=== PATIENT | male | born 1970 | race Caucasian/White ===

== ENCOUNTER 2017-03-04 14:00 | Inpatient (IN) | payer OTHER ==
[~2017-03-04] VITALS: Ht 177.8 cm; Wt 101.0 kg
--- NOTE | ~2017-03-04 | OR ---
PATIENT'S NAME: MEEK ALLEN [facility] AGE: 46 Y [address] ROOM: [place] [address] LOCATION: [facility] ADMIT DATE: 04/15/2017 OR/Procedure Report DISCHARGE DATE: FAMILY PHYSICIAN: Lucia Stephens MD ATTENDING PHYSICIAN: IMELDA MCDONALD SURGEON: Imelda Mcdonald MD CONDITIONING MACHINE OPERATOR: 1. ALFREDO Kat. 2. Ezequiel Hawkins CST/SUPERVISOR. 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 OPERATION: Right total knee arthroplasty with computer navigation. ANESTHESIA: Spinal anesthesia plus adductor canal block plus subcutaneous and periarticular local anesthesia (ropivacaine with epinephrine and Toradol). ESTIMATED BLOOD LOSS: DRAIN: None. SPECIMEN: None. COMPLICATIONS: None. IMPLANT SYSTEM: Chandu Triathlon Size 5 right posterior stabilized femoral component Size 4 universal modular tibial baseplate 11 mm posterior stabilized size 4 X3 tibial polyethylene insert. 32 mm Oval X3 patella component (triple pegged). INDICATIONS FOR SURGERY: Meek Allen is a 46-year-old male who presents with advanced right knee degenerative joint disease and associated severely compromised activities of daily living. The patient has decided to proceed with knee replacement after having been thoroughly counseled regarding the associated risks, benefits, and limitations. We have specifically reviewed the risks and implications of infection, deep venous thrombosis, pulmonary embolism, mortality, neurovascular complications, blood transfusion (and associated potential for disease transmission or transfusion reaction), stiffness, instability, mechanical deterioration of the components (due to wear and or loosening), and the potential need for revision. We have also PATIENT'S NAME: ELEANOR ALLENH Robert [facility] AGE: 46 Y [address] ROOM: [place] [address] LOCATION: [facility] ADMIT DATE: 04/15/2017 OR/Procedure Report DISCHARGE DATE: FAMILY PHYSICIAN: Lucia Stephens MD ATTENDING PHYSICIAN: IMELDA MCDONALD emphasized the importance of active involvement and compliance with post- operative physical therapy as a means of optimizing range of motion and functional recovery. Informed consent has been granted. DESCRIPTION OF PROCEDURE: The patient was positioned supine after administration of anesthesia and prophylactic antibiotics. A well-padded pneumatic tourniquet was placed around the right proximal thigh, and the right lower extremity was prepped and draped with vigilant sterile technique. The patient's name as well as the intended operative side and procedure were confirmed with a verbal time-out involving myself, the circulating nurse, the scrub nurse, and the anesthesiologist. Examination under anesthesia demonstrated a mild effusion. There were no active skin lesions or masses. There was a well-healed longitudinal midline scar over the patellar tendon. There was a moderate varus deformity (approximately 10 degrees). Range of motion was under anesthesia was from 2 degrees of hyperextension to 130 degrees of flexion. There was a 2+ pivot shift. There was a 2B Richie. There was no varus or valgus laxity. Negative posterior drawer. The right lower extremity was elevated and exsanguinated with an Esmarch wrap, and the pneumatic tourniquet was inflated to 300mmHg. The knee was approached through a longitudinal midline incision. A medial parapatellar arthrotomy was performed and the patella was everted. Examination of the joint space demonstrated a large osteophytes at the intercondylar notch. The anterior cruciate ligament was absent. The posterior cruciate ligament was intact. There was no synovitis. There were no loose bodies. There was a large popliteal cyst, which I decompressed into the posterior aspect of the joint space by dilating its point of communication. There was full-thickness loss of articular cartilage throughout the medial femoral condyle and throughout the posterior 2/3rd of the medial tibial plateau. There had been erosion of approximately 8 mm of subchondral bone from the posterior medial aspect of the medial tibial plateau. There was a 2 x 1 cm region of grade 4 chondromalacia at the lateral margin of the femoral trochlea. There was a 2 x 3 cm region of grade 4 chondromalacia at the medial half of the femoral trochlea. There were mild grade 3 degenerative changes at the patella. There were small osteophytes at the medial and lateral margins of the patella. There were large osteophytes at the medial and lateral femoral condyle. There was 1 x 2 cm diameter region of full-thickness articular cartilage loss at the medial aspect of the lateral femoral condyle. There were mild generalized grade 3 degenerative changes at the lateral tibial plateau. There was degenerative tearing of the inner perimeter of the small peripheral remnant of the medial meniscus. There the lateral meniscus. It should be noted that neither the interference screw at the distal femur nor the two ligament nicolle at the PATIENT'S NAME: MEEK ALLEN [facility] AGE: 46 Y [address] ROOM: [place] [address] LOCATION: [facility] ADMIT DATE: 04/15/2017 OR/Procedure Report DISCHARGE DATE: FAMILY PHYSICIAN: Lucia Stephens MD ATTENDING PHYSICIAN: IMELDA MCDONALD proximal tibia were encountered during the case. Remnants of the menisci and cruciate ligaments were excised. The Moneero computer navigation femoral tracker was pinned in place at the distal aspect of the femoral trochlea. Absence of motion between the femur and the tracking device was confirmed manually and visually. Femoral osseous landmarks were obtained in order to calibrate the computer navigation system. Landmarks included the center of rotation of the ipsilateral hip, the center-point of the distal femur, the femoral AP axis, 57 points on the medial femoral condyle articular surface, and 57 points on the lateral femoral condyle articular surface. The Moneero computer navigation system was subsequently utilized to position the distal femoral resection block such that the distal femoral resection was performed perfectly perpendicular to the femoral mechanical axis. The distal femoral resection was performed with a Apica Precision oscillating saw. The Moneero computer navigation tibial tracker was pinned in place at the anterior aspect of the tibial plateau. Absence of motion between the tibia and the tracking device was confirmed manually and visually. Tibial osseous landmarks were obtained in order to calibrate the computer navigation system. Landmarks included the center-point of the tibial plateau, the AP tibial axis, 57 points on the medial tibial plateau articular surface, 57 points on the lateral tibial plateau articular surface, the medial malleolus, and the lateral malleolus. The Moneero computer navigation system was subsequently utilized to position the proximal tibial resection block such that the proximal tibial resection was performed perfectly perpendicular to the tibial mechanical axis. The proximal tibial resection was performed with a Apica Precision oscillating saw. Perpendicularity of the tibial resection with respect to the tibial shaft axis was reconfirmed by inserting a spacer- block attached to an extramedullary guide phillip. External rotation of the anterior and posterior femoral resections was set parallel to the epicondylar axis and carefully adjusted in order to create a rectangular flexion gap. The box resection was performed with a reciprocating saw. Anterior and posterior chamfer resections were performed with the oscillating saw. Posterior condyle osteophytes were excised with an osteotome. All other osteophytes were excised with a rongeur. Resection of all remnants of the menisci was reconfirmed. Flexion and extension gaps were confirmed to be symmetric and well balanced with a spacer-block technique. The patella resection was performed with an oscillating saw such that the composite thickness of the reconstructed patella was equivalent to the thickness of the pitka's point patella. Patella tracking was optimal and there was no need for any lateral retinacular release. PATIENT'S NAME: MEEK ALLEN [facility] AGE: 46 Y [address] ROOM: [address] [address] LOCATION: [facility] ADMIT DATE: 04/15/2017 OR/Procedure Report DISCHARGE DATE: FAMILY PHYSICIAN: Lucia Stephens MD ATTENDING PHYSICIAN: IMELDA MCDONALD All trial components were removed and all prepared osseous surfaces were thoroughly irrigated with pulsatile saline lavage and dried prior to cementing all three components in a single stage using Apica Simplex cement containing pre-mixed tobramycin. All extruded excess cement was removed. The entire joint space was thoroughly inspected and thoroughly irrigated with bacteriostatic pulsatile saline lavage to assure that there was no residual debris of any sort. Final range of motion was from a full extension (with approximately 1 degree of residual passive hyperextension) to 130 degrees of flexion. Patella tracking was reconfirmed to be optimal. There was excellent anteroposterior stability at 90 degrees of flexion. There was less than 1 mm of medial lift- off to valgus stress in full extension. There was less than 1 mm of lateral lift-off to varus stress in full extension. The arthrotomy was closed with multiple simple and pnczge-vw-adccr interrupted #1 Vicryl. Subcutaneous tissues were thoroughly re-irrigated with bacteriostatic pulsatile saline lavage. Subcutaneous tissues were re- approximated with simple buried interrupted #0 Vicryl sutures. The skin was closed with simple buried interrupted 2-0 Vicryl sutures followed by surgical nicolle. The dressing consisted of Xeroform gauze, 4x4 gauze, ABD pads and two 6-inch Usama Wraps. There were no intra-operative complications. It should be noted that the physician's physiotherapy assistant played an active, integral role throughout this entire operation. By providing expert retraction, they greatly facilitated and expedited safe and effective exposure of the distal femur, proximal tibia and patella for preparation and implantation of the components. They were also actively involved in the patient's positioning, prepping and draping, as well as wound closure. MD RIP RODRIGUEZ/jayesh /[id number] d: 04/15/17 1545 t: 04/16/17 1209, OPERATIVE SUMMARY
--- NOTE | ~2017-03-04 | DS ---
PATIENT'S NAME: JOSE CRUZ [facility] AGE: 46 Y [address] ROOM: [place] [address] LOCATION: [facility] ADMIT DATE: 04/15/2017 Discharge Summary DISCHARGE DATE: 04/17/2017 FAMILY PHYSICIAN: Lucia Stephens MD ATTENDING PHYSICIAN: Imelda Mcdonald PRIMARY DIAGNOSIS: Degenerative joint disease of the right knee. SECONDARY DIAGNOSES: 1. Hyperlipidemia. 2. 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 PROCEDURE PERFORMED: Right total knee arthroplasty. HISTORY: The patient is a 46-year-old male, who presents with advanced right knee degenerative joint disease and associated severely compromised activities of daily living. The patient has decided to proceed with total knee arthroplasty after having been thoroughly counseled regarding the risks, benefits, limitations and alternatives. Please refer to the outpatient clinic notes and admission history and physical for this patient. HOSPITAL COURSE: The patient underwent a right total knee arthroplasty on 04/15/2017 without complications. Spinal anesthesia plus adductor canal block plus subcutaneous and periarticular local anesthesia was utilized. The patient received 24 hours of perioperative prophylactic antibiotics and remained hemodynamically stable, neurovascularly intact throughout the entire hospital course. The postoperative prophylactic deep venous thrombosis prophylaxis consisted of aspirin, early mobilization and pneumatic compression devices. Daily physical therapy for gait training, transfer training range of motion and quadriceps isometric exercises were received. The patient progressed well in physical therapy. On the date of discharge, 04/17/2017, the incision at the knee was healing well and showed no signs of infection. DISPOSITION: Home. DISCHARGE ACTIVITY: The patient is to bear weight as tolerated with range of motion and quadriceps isometric exercises as instructed. The operative extremity is to be elevated at least 90% of the day. There is to be sterile 4x4 gauze dressings to the incision daily. Dr. Mcdonald is to be notified immediately if there is any increased pain, fevers, chills erythema or drainage. DISCHARGE MEDICATIONS: 1. Aspirin 325 mg one tab p.o. daily for 30 days for postoperative DVT prophylaxis. PATIENT'S NAME: JOSE CRUZ [facility] AGE: 46 Y [address] ROOM: [address] [address] LOCATION: [facility] ADMIT DATE: 04/15/2017 Discharge Summary DISCHARGE DATE: 04/17/2017 FAMILY PHYSICIAN: Lucia Stephens MD ATTENDING PHYSICIAN: Imelda Mcdonald 2. Hydromorphone 2 mg 1 to 2 tabs p.o. every 4 hours p.r.n. for pain. 3. Gabapentin 300 mg 1 tab p.o. daily for 7 days for pain. 4. He was then instructed to continue all his pre-admission medications as instructed by his Internal Medicine physician. FOLLOWUP: Followup appointment is to be with Dr. Mcdonald's office on 04/22/2017 for initial postoperative evaluation with x-rays and for staple removal. SB GOLDEN PA-C FOR IMELDA MCDONALD MD SMW/modl /[id number] d: 04/22/17 1619 t: 04/22/17 1826, DISCHARGE SUMMARY
[~2017-03-04 14:00] MED LIST: ADVIL200 MG PO
[2017-04-11] MEDS ORDERED: NASACORT16.9 ML NOSE (10:21)
--- NOTE | 2017-04-15 16:26 | NUR ---
Significant Event: Pt received from pacu @ 1300. Will have 3rd hourly vs due @ 0323. Taking dilaudid for pain control. CSM WNL. Up in chair. Voiding per urinal. Acewrap c/di. EZ wrap, augustus hose, foot pumps on. Denies n/v. Follow up:
--- NOTE | 2017-04-16 04:04 | NUR ---
Pt AOx3. Up with one assist. Dilaudid for pain. Dressing C/D/I. CSM's intact.
--- NOTE | 2017-04-16 16:03 | NUR ---
Significant Event: RACHELLE DRESSING TO R) KNEE C/D/I. CSM ASSESSMENTS WNL. RATES R) KNEE PAIN 5-4 ON PAIN SCALE, PAIN WELL CONTROLLED WITH DILAUDID 1 TAB GIVEN LAST AT 1547. BILATERAL KNEE HIGH TEDS, FOOT PUMPS ON. EZ WRAP TO R) KNEE. UP TO CHAIR AND AMBULATES WITH SBA, USE OF WALKER/GAIT BELT. PLEASANT AND COOPERATIVE WITH CARES. Follow up:
--- NOTE | 2017-04-17 04:32 | NUR ---
Significant Event: Pt A&Ox3. VS stable, remains on RA. Pain adequately controlled with scheduled tylenol and PRN pain meds. Up with SBA to bathroom. Good UOP. CSM intact. Dressing remains C/D/I. Stays up in chair throughout the night. Follow up: To d/c home today.
[2017-04-17] MEDS ORDERED: TYLENOL EXTRA500 MG PO (10:25)
[2017-04-17] MEDS ORDERED: ECOTRIN325 MG PO (10:28)
[2017-04-17] MEDS ORDERED: COLACE100 MG PO (10:28)
[2017-04-17] MEDS ORDERED: NEURONTIN300 MG PO (10:29)
[2017-04-17] MEDS ORDERED: MIRALAX17 GM PO (10:31)
[2017-04-17] MEDS ORDERED: DILAUDID 2MG(HYD2 MG PO (10:33)
== END 2017-04-17 13:35 | disposition disaster alternative care site (69) | DRG 470 ==
LOC: G3N 04-15 08:08
PROVIDERS: ADMIT Orthopaedic Surgery
PROC: 0SRC0J9 Replacement of Right Knee Joint with Synthetic Substitute, Cemented, Open Approach (ICD-10-PCS; principal; 2017-04-15)
PROC: 8E0YXBZ Computer Assisted Procedure of Lower Extremity (ICD-10-PCS; principal; 2017-04-15)
DX: M23.8X1 Other internal derangements of right knee (principal); E78.5 Hyperlipidemia, unspecified; M17.11 Unilateral primary osteoarthritis, right knee; F17.210 Nicotine dependence, cigarettes, uncomplicated; E66.9 Obesity, unspecified; Z68.31 Body mass index [BMI] 31.0-31.9, adult
CPT/HCPCS: C1713; C1776; J0690; J1100; J1885; J2001; J2250; J2405; J2795; J7120

== ENCOUNTER → 2017-03-07 | Outpatient (CLI) | payer OTHER ==
[~2017-03-07] MED LIST changes: +COLACE100 MG PO; +DILAUDID 2MG(HYD2 MG PO; +ECOTRIN325 MG PO; +MIRALAX17 GM PO; +NASACORT16.9 ML NOSE; +NEURONTIN300 MG PO; +TYLENOL EXTRA500 MG PO
== END | disposition disaster alternative care site (69) ==
LOC: GNJRC 10:15
DX: Z01.812 Encounter for preprocedural laboratory examination (principal); M17.11 Unilateral primary osteoarthritis, right knee